=== PATIENT | male | born 1950 | race African-American/Black ===

== ENCOUNTER 2021-08-31 10:15 | Outpatient (CLI) | payer MEDICARE, MEDICAID | END 2021-08-31 10:16 | disposition home or self-care (01) | LOC: CSHCT 10:15 | PROVIDERS: ATTEND Orthopaedic Surgery | DX: M54.50 Low back pain, unspecified (principal); M47.816 Spondylosis without myelopathy or radiculopathy, lumbar region; Z98.890 Other specified postprocedural states | CPT/HCPCS: 72131; 80048; 85027; 85610; 85730; 86850; 86900; 86901; 93005; U0003; U0005 ==

== ENCOUNTER 2021-08-31 11:06 | Outpatient (CLI) | payer MEDICARE, MEDICAID ==
[2021-08-31 12:54] LABS: Hemoglobin 10.7 g/dL (13.5-17.5); Mean Corpuscular HGB CONC 30.2 g/dL (32.0-36.0); Mean Corpuscular Volume 89.4 fl (81.2-95.1); Mean Platelet Volume 10.1 fl (7.4-10.4); Platelet Count 353 10x3/uL (150-450); Red Blood Cell (RBC) Count 3.96 10x6/uL (4.32-5.72); White Blood Cell (WBC) Count 9.6 10x3/uL (3.5-10.5)
[2021-08-31 13:50] LABS: INR-International Normal Ratio 1.1; PTT 29.5 sec (22.0-33.0); Prothrombin Time 12.2 sec (9.5-12.1)
[2021-08-31 13:53] LABS: Anion Gap 16 mmol/L (10-20); BUN (Urea Nitrogen) 9 mg/dL (8.4-25.7); Calc. Creatinine Clearance 0 mL/min (70-130); Calcium 8.8 mg/dL (7.8-10.44); Carbon Dioxide 30 mmol/L (23-31); Chloride 103 mmol/L (98-107); Glucose 112 mg/dL (83-110); Potassium 3.6 mmol/L (3.5-5.1); Sodium 145 mmol/L (136-145)
[2021-08-31 17:08] LABS: SARS-CoV-2 PCR by NAA Not Detected (NotDetected)
== END 2021-08-31 11:07 | disposition home or self-care (01) ==
LOC: CSHLAB 11:06
PROVIDERS: ATTEND Orthopaedic Surgery
DX: Z01.818 Encounter for other preprocedural examination (principal); Z20.822 Contact with and (suspected) exposure to COVID-19; M54.50 Low back pain, unspecified; M54.17 Radiculopathy, lumbosacral region
CPT/HCPCS: 80048; 85027; 85610; 85730; 86850; 86900; 86901; 93005; 93010; U0003; U0005

== ENCOUNTER 2021-09-05 06:00 | Inpatient (IN) | payer MEDICARE, MEDICAID ==
[2021-08-31 12:54] LABS: Hemoglobin 10.7 g/dL (13.5-17.5); Mean Corpuscular HGB CONC 30.2 g/dL (32.0-36.0); Mean Corpuscular Volume 89.4 fl (81.2-95.1); Mean Platelet Volume 10.1 fl (7.4-10.4); Platelet Count 353 10x3/uL (150-450); Red Blood Cell (RBC) Count 3.96 10x6/uL (4.32-5.72); White Blood Cell (WBC) Count 9.6 10x3/uL (3.5-10.5)
[2021-08-31 13:50] LABS: INR-International Normal Ratio 1.1; PTT 29.5 sec (22.0-33.0); Prothrombin Time 12.2 sec (9.5-12.1)
[2021-08-31 13:53] LABS: Anion Gap 16 mmol/L (10-20); BUN (Urea Nitrogen) 9 mg/dL (8.4-25.7); Calc. Creatinine Clearance 0 mL/min (70-130); Calcium 8.8 mg/dL (7.8-10.44); Carbon Dioxide 30 mmol/L (23-31); Chloride 103 mmol/L (98-107); Glucose 112 mg/dL (83-110); Potassium 3.6 mmol/L (3.5-5.1); Sodium 145 mmol/L (136-145)
[2021-08-31 17:08] LABS: SARS-CoV-2 PCR by NAA Not Detected (NotDetected)
[2021-09-05] MEDS ORDERED: EPINEPHrine 1 MG/ML AMP ONE (06:12)
[2021-09-05] MEDS ORDERED: Bupivacaine 0.25% HCL 30 ML VIAL ONE (06:12)
[2021-09-05] MEDS ORDERED: Dexamethasone 4 mg/ml Vial ONE (06:40)
[2021-09-05] MEDS ORDERED: Lidocaine 1% PF 5 ML VIAL ONE (06:40)
[2021-09-05] MEDS ORDERED: PROPOFOL 20 ML ONE (06:40)
[2021-09-05] MEDS ORDERED: Fentanyl 100 MCG/2 ML VIAL ONE ×3 (06:40→17:04)
[2021-09-05] MEDS ORDERED: Ondansetron PF 4 MG/2 ML Vial ONE (06:40)
[2021-09-05] MEDS ORDERED: Midazolam HCl 2 mg/2 ml Vial ONE (06:40)
[2021-09-05] MEDS ORDERED: PHENYLEPHRINE-NS 100 MCG/ML 10 ML SYRINGE ONE (06:41)
[2021-09-05] MEDS ORDERED: Ketamine 50 MG/ML (10ML VIAL) ONE (06:44)
[2021-09-05] MEDS ORDERED: SUGAMMADEX SODIUM 200 MG/2 ML VIAL ONE (06:44)
[2021-09-05] MEDS ORDERED: Phenylephrine 40 MG/NS 250 ML 250 ML ONE (06:45)
[2021-09-05] MEDS ORDERED: Propofol 1,000 MG/100 ML VIAL IV ONE ×2 (06:45→12:32)
[2021-09-05] MEDS ORDERED: Famotidine/PF 20 mg/2ml Vial ONE (06:48)
[2021-09-05] MEDS ORDERED: Rocuronium Bromide 10 MG/ML (10ML VIAL) ONE (07:00)
[2021-09-05] MEDS ORDERED: CEFAZOLIN 1 GM VIAL ONE ×2 (07:02→11:02)
[2021-09-05] MEDS ORDERED: Albumin 5% 500 ML ONE (07:08)
[2021-09-05] MEDS ORDERED: Tranexamic Acid 1,000 MG/10 ML VIAL ONE (08:36)
[2021-09-05 09:21] LABS: Actual Bicarbonate (HCO3a) 27.3 mEq/L (22-28); Base Excess (BEa) 3.6 mEq/L (-2.0 to +3.0); CO2 Tension 37.9 mmHg (35.0-45.0); Calcium, Ionized (arterial) 1.06 mmol/L (1.12-1.30); Carboxyhemoglobin (COHb) 0.1 gm% (0.0-3.0); O2 Tension (PaO2), arterial 194.2 mmHg (> 70.0); Potassium - ABG Lab 2.7 mmol/L (3.70-5.30); Puncture Site Other Site; pH, Arterial 7.48 (7.35-7.45)
[2021-09-05 09:24] LABS: ALV-art Gradient 471.425 mmHg (0-20)
[2021-09-05 11:49] LABS: Actual Bicarbonate (HCO3a) 26.7 mEq/L (22-28); Base Excess (BEa) 3.7 mEq/L (-2.0 to +3.0); CO2 Tension 34.1 mmHg (35.0-45.0); Calcium, Ionized (arterial) 1.03 mmol/L (1.12-1.30); Carboxyhemoglobin (COHb) 0.5 gm% (0.0-3.0); Critical Notified Whom: CRNA; Hemoglobin (Hb) 9.6 g/dL (14.0-18.0); O2 Tension (PaO2), arterial 182.7 mmHg (> 70.0); Potassium - ABG Lab 2.8 mmol/L (3.70-5.30); Puncture Site Other Site; RapidComm Collect By CBN; pH, Arterial 7.51 (7.35-7.45)
[2021-09-05 11:53] LABS: ALV-art Gradient 487.675 mmHg (0-20)
[2021-09-05] MEDS ORDERED: HYDROmorphone 0.5 MG/0.5 ML SYRINGE ONE (12:32)
[2021-09-05] MEDS ORDERED: traMADol HCl 50 MG TAB PO PRN (13:59)
[2021-09-05] MEDS ORDERED: Acetaminophen 325 MG TAB PO PRN ×2 (13:59→14:02)
[2021-09-05] MEDS ORDERED: TETANUS AND DIPHTHERIA TOX/PF 0.5 ML DISP.SYRIN IM SCH (14:00)
[2021-09-05] MEDS ORDERED: Meperidine HCl/PF 25 MG/ML VIAL ONE (14:00)
[2021-09-05] MEDS ORDERED: Communication Order-Pharmacy FS SCH (14:00)
[2021-09-05] MEDS ORDERED: INSULN SC PRN (14:02)
[2021-09-05] MEDS ORDERED: [UNRECOGNIZED DRUG - OTHER] SC PRN (14:02)
[2021-09-05] MEDS ORDERED: INSULIN ASPART 100 UNIT/ML SC PRN (14:02)
[2021-09-05] MEDS ORDERED: HumaLOG 300 UNITS/3 ML VIAL SC PRN (18:13)
[2021-09-05] MEDS ORDERED: hydrALAZINE 20 MG/ML VIAL SLOW IVP PRN (19:06)
[2021-09-05] MEDS ORDERED: Dextrose 50% Abboject 50 ML SYRINGE IVP PRN (19:30)
[2021-09-05] MEDS ORDERED: Dextrose 5% in Water 1,000 ML IV PRN (19:30)
[2021-09-05 19:47] LABS: #Monocytes 0.7 10x3/uL (0.0-1.1); #Neutrophils 10.9 10x3/uL (1.5-8.4); %Basophils 0.1 % (0.0-2.0); %Lymphocytes 14.1 % (18.0-47.0); %Monocytes 5.1 % (0.0-10.0); %Neutrophils 80.3 % (40.0-75.0); Hemoglobin 9.9 g/dL (13.5-17.5); Mean Corpuscular HGB CONC 31.4 g/dL (32.0-36.0); Mean Corpuscular Hemoglobin 27.4 pg (27.0-33.0); Mean Corpuscular Volume 87.3 fl (81.2-95.1); Mean Platelet Volume 9.2 fl (7.4-10.4); Platelet Count 282 10x3/uL (150-450); RBC Distribution Width 14.6 % (11.5-14.5); Red Blood Cell (RBC) Count 3.61 10x6/uL (4.32-5.72); White Blood Cell (WBC) Count 13.6 10x3/uL (3.5-10.5)
[2021-09-05] MEDS: Carvedilol 25 MG TAB PO SCH (19:50)
[2021-09-05] MEDS: Dronedarone HCl 400 MG TAB PO SCH (19:51)
[2021-09-05 19:59] LABS: INR-International Normal Ratio 1.1; PTT 26.7 sec (22.0-33.0); Prothrombin Time 11.8 sec (9.5-12.1)
[2021-09-05 20:02] LABS: ALT (SGPT) 10 U/L (8-55); AST (SGOT) 20 U/L (5-34); Albumin 3.8 g/dL (3.4-4.8); Alkaline Phosphatase 80 U/L (40-110); Anion Gap 13 mmol/L (10-20); BUN (Urea Nitrogen) 12 mg/dL (8.4-25.7); Bilirubin, Total 0.7 mg/dL (0.2-1.2); Calc. Creatinine Clearance 64 mL/min (70-130); Calcium 8.5 mg/dL (7.8-10.44); Carbon Dioxide 28 mmol/L (23-31); Chloride 103 mmol/L (98-107); Glucose 163 mg/dL (83-110); Potassium 3.4 mmol/L (3.5-5.1); Protein, Total 6.8 g/dL (5.8-8.1); Sodium 141 mmol/L (136-145)
[2021-09-05] MEDS: Aspirin 81 mg Enteric Coated Tablet PO SCH (20:14)
[2021-09-05] MEDS: traZODone HCl 50 MG TAB PO SCH (20:22)
[2021-09-05] MEDS: Atorvastatin Calcium 40 MG TAB PO SCH (20:22)
[2021-09-05] MEDS: CEFAZOLIN 2 GM in Premix Bag 1 BAG IVPB SCH (20:23)
[2021-09-05] MEDS: Morphine 4 MG/ML VIAL SLOW IVP PRN (20:50)
[2021-09-06] MEDS: HYDROcodone/Acetaminophen 10/325 mg Tablet PO PRN ×7 (00:02→23:47)
[2021-09-06] MEDS: CEFAZOLIN 2 GM in Premix Bag 1 BAG IVPB SCH ×3 (03:47→18:34)
[2021-09-06 04:32] LABS: Hemoglobin 8.9 g/dL (13.5-17.5); Mean Corpuscular HGB CONC 31.9 g/dL (32.0-36.0); Mean Corpuscular Hemoglobin 27.6 pg (27.0-33.0); Mean Corpuscular Volume 86.6 fl (81.2-95.1); Platelet Count 273 10x3/uL (150-450); RBC Distribution Width 14.6 % (11.5-14.5); Red Blood Cell (RBC) Count 3.22 10x6/uL (4.32-5.72)
[2021-09-06 04:37] LABS: Anion Gap 15 mmol/L (10-20); BUN (Urea Nitrogen) 12 mg/dL (8.4-25.7); Calc. Creatinine Clearance 75 mL/min (70-130); Calcium 8.2 mg/dL (7.8-10.44); Carbon Dioxide 27 mmol/L (23-31); Chloride 105 mmol/L (98-107); Glucose 140 mg/dL (83-110); Potassium 3.2 mmol/L (3.5-5.1); Sodium 144 mmol/L (136-145)
[2021-09-06 04:44] VITALS: BMI 28.4
[2021-09-06] MEDS: Lantus 1000 UNITS/10 ML VIAL SC SCH (08:51)
[2021-09-06] MEDS: Carvedilol 25 MG TAB PO SCH ×2 (08:52→16:08)
[2021-09-06] MEDS: Torsemide 20 MG TAB PO SCH (08:52)
[2021-09-06] MEDS: Lisinopril 20 MG TAB PO SCH (08:52)
[2021-09-06] MEDS: Spironolactone 25 MG TAB PO SCH (08:53)
[2021-09-06] MEDS: Tamsulosin HCl 0.4 MG CAP PO SCH (08:53)
[2021-09-06] MEDS: Amlodipine 5 MG TAB PO SCH (08:53)
[2021-09-06] MEDS: Multivit, Therapeutic 1 TAB PO SCH (08:54)
[2021-09-06] MEDS: Aspirin 81 mg Enteric Coated Tablet PO SCH ×2 (08:54→21:20)
[2021-09-06] MEDS: Dronedarone HCl 400 MG TAB PO SCH ×2 (08:55→16:08)
[2021-09-06] MEDS ORDERED: Aspirin 81 mg Enteric Coated Tablet PO SCH (09:00)
[2021-09-06] MEDS ORDERED: LIRAGLUTIDE 0.6 MG/0.1 ML SC SCH (09:00)
[2021-09-06] MEDS ORDERED: Electrolyte Replacement Protocol 1 EACH FS PRN (10:30)
[2021-09-06] MEDS ORDERED: Potassium Chloride 20 MEQ TAB PO SCH ×2 (11:00→15:15)
[2021-09-06] MEDS: Morphine 4 MG/ML VIAL SLOW IVP PRN ×2 (11:09→16:08)
[2021-09-06 14:52] LABS: Potassium 3.5 mmol/L (3.5-5.1)
[2021-09-06] MEDS: Atorvastatin Calcium 40 MG TAB PO SCH (21:20)
[2021-09-07] MEDS: traZODone HCl 50 MG TAB PO SCH (02:04)
[2021-09-07] MEDS: CEFAZOLIN 2 GM in Premix Bag 1 BAG IVPB SCH ×2 (03:00→11:04)
[2021-09-07 05:15] LABS: Magnesium 1.8 mg/dL (1.6-2.6)
[2021-09-07] MEDS ORDERED: Magnesium 2 GM/50 ML 2 GM in Premix Bag 1 BAG IVPB SCH (08:00)
[2021-09-07] MEDS ORDERED: Potassium Chloride 20 MEQ TAB PO SCH (08:00)
[2021-09-07] MEDS: Dronedarone HCl 400 MG TAB PO SCH ×2 (08:34→16:11)
[2021-09-07] MEDS: Amlodipine 5 MG TAB PO SCH (08:35)
[2021-09-07] MEDS: Carvedilol 25 MG TAB PO SCH ×2 (08:36→16:13)
[2021-09-07] MEDS: Aspirin 81 mg Enteric Coated Tablet PO SCH (08:36)
[2021-09-07] MEDS: Multivit, Therapeutic 1 TAB PO SCH (08:36)
[2021-09-07] MEDS: Spironolactone 25 MG TAB PO SCH (08:37)
[2021-09-07] MEDS: Lisinopril 20 MG TAB PO SCH (08:38)
[2021-09-07] MEDS: Lantus 1000 UNITS/10 ML VIAL SC SCH (08:39)
[2021-09-07] MEDS: Tamsulosin HCl 0.4 MG CAP PO SCH (08:39)
[2021-09-07] MEDS: HYDROcodone/Acetaminophen 10/325 mg Tablet PO PRN ×2 (09:08→16:10)
[2021-09-07] MEDS: Torsemide 20 MG TAB PO SCH (09:09)
[2021-09-07 12:34] LABS: Potassium 3.3 mmol/L (3.5-5.1)
[2021-09-07 17:16] VITALS: BP 95/52; TEMP 97.5
[2021-09-07] MEDS ORDERED: Docusate 100 MG CAP PO SCH (21:00)
== END 2021-09-07 18:45 | disposition home or self-care (01) | DRG 454 ==
LOC: CSHSDC 06:00 → CSHICU 18:44 → CSHTELE 09-06 12:05
PROVIDERS: ADMIT Internal Medicine; ATTEND Internal Medicine
PROC: 0SG30AJ Fusion of Lumbosacral Joint with Interbody Fusion Device, Posterior Approach, Anterior Column, Open Approach (ICD-10-PCS; principal; 2021-09-05)
PROC: 0SB40ZZ Excision of Lumbosacral Disc, Open Approach (ICD-10-PCS; 2021-09-05)
PROC: 4A11X4G Monitoring of Peripheral Nervous Electrical Activity, Intraoperative, External Approach (ICD-10-PCS; 2021-09-05)
PROC: 0SG30K1 Fusion of Lumbosacral Joint with Nonautologous Tissue Substitute, Posterior Approach, Posterior Column, Open Approach (ICD-10-PCS; 2021-09-05)
DX: M48.07 Spinal stenosis, lumbosacral region (principal); I50.42 Chronic combined systolic (congestive) and diastolic (congestive) heart failure; I13.0 Hypertensive heart and chronic kidney disease with heart failure and stage 1 through stage 4 chronic kidney disease, or unspecified chronic kidney disease; R53.83 Other fatigue; J44.9 Chronic obstructive pulmonary disease, unspecified; I48.91 Unspecified atrial fibrillation; I25.10 Atherosclerotic heart disease of native coronary artery without angina pectoris; E78.5 Hyperlipidemia, unspecified; N40.0 Benign prostatic hyperplasia without lower urinary tract symptoms; E11.22 Type 2 diabetes mellitus with diabetic chronic kidney disease; M54.17 Radiculopathy, lumbosacral region; M54.12 Radiculopathy, cervical region; N18.31 Chronic kidney disease, stage 3a; K21.9 Gastro-esophageal reflux disease without esophagitis; E11.65 Type 2 diabetes mellitus with hyperglycemia; G47.33 Obstructive sleep apnea (adult) (pediatric); Z20.822 Contact with and (suspected) exposure to COVID-19; Z95.810 Presence of automatic (implantable) cardiac defibrillator
CPT/HCPCS: 36415; 36416; 72110; 76000; 80048; 80053; 82805; 83735; 84100; 84132; 85025; 85027; 85610; 85730; 86850; 86900; 86901; 94760; C1713; C1762; J0171; J0690; J1100; J1170; J1815; J2175; J2250; J2270; J2405; J2704; J3010; J3475; P9045; S0020; S0028; U0003; U0005

== ENCOUNTER 2021-10-10 10:45 | Outpatient (CLI) | payer MEDICARE, MEDICAID | END 2021-10-10 10:46 | disposition home or self-care (01) | LOC: CSHRAD 10:45 | PROVIDERS: ATTEND Orthopaedic Surgery | DX: M54.50 Low back pain, unspecified (principal); Z98.890 Other specified postprocedural states | CPT/HCPCS: 72100 ==

== ENCOUNTER 2023-01-07 17:11 | Emergency (ER) | payer OTHER ==
[2023-01-07] MEDS ORDERED: Aspirin 325 MG TAB ONE (18:19)
[2023-01-07] MEDS ORDERED: Nitroglycerin 2% Ointment 1 INCH/1 GM Packet ONE (18:19)
[2023-01-07] MEDS ORDERED: Morphine 2 MG/ML VIAL ONE (18:28)
[2023-01-07 18:40] LABS: #Eosinphils 0.2 10x3/uL (0.0-0.5); #Monocytes 0.8 10x3/uL (0.0-1.1); #Neutrophils 6.1 10x3/uL (1.5-8.4); %Basophils 0.4 % (0.0-2.0); %Eosinophils 2.2 % (0.0-6.0); %Lymphocytes 25.5 % (18.0-47.0); %Monocytes 8.6 % (0.0-10.0); %Neutrophils 62.8 % (40.0-75.0); Hemoglobin 9.9 g/dL (13.5-17.5); Mean Corpuscular HGB CONC 32.1 g/dL (32.0-36.0); Mean Corpuscular Hemoglobin 28.7 pg (27.0-33.0); Mean Corpuscular Volume 89.3 fl (81.2-95.1); Mean Platelet Volume 9.6 fl (7.4-10.4); Platelet Count 282 10x3/uL (150-450); RBC Distribution Width 13.9 % (11.5-14.5); Red Blood Cell (RBC) Count 3.45 10x6/uL (4.32-5.72); White Blood Cell (WBC) Count 9.7 10x3/uL (3.5-10.5)
[2023-01-07 18:56] LABS: ALT (SGPT) 11 U/L (8-55); AST (SGOT) 12 U/L (5-34); Alkaline Phosphatase 83 U/L (40-110); Anion Gap 15 mmol/L (10-20); BUN (Urea Nitrogen) 30 mg/dL (8.4-25.7); Bilirubin, Total 0.6 mg/dL (0.2-1.2); CK (CPK) 316 U/L (30-200); Calc. Creatinine Clearance 0 mL/min (70-130); Calcium 8.8 mg/dL (7.8-10.44); Carbon Dioxide 20 mmol/L (23-31); Chloride 110 mmol/L (98-107); Estimated GFR 32; Globulin 3.4 g/dL (2.4-3.5); Glucose 112 mg/dL (83-110); Lipase 31 U/L (8-78); Protein, Total 7.4 g/dL (5.8-8.1); Sodium 141 mmol/L (136-145)
[2023-01-07 19:32] LABS: SARS-CoV-2 NAA Rapid Test Not Detected (NotDetected)
== END 2023-01-07 21:31 | disposition short-term general hospital (02) ==
LOC: CSHERS 17:11
DX: I20.0 Unstable angina (principal); I12.9 Hypertensive chronic kidney disease with stage 1 through stage 4 chronic kidney disease, or unspecified chronic kidney disease; E11.22 Type 2 diabetes mellitus with diabetic chronic kidney disease; N18.9 Chronic kidney disease, unspecified; I48.91 Unspecified atrial fibrillation; E78.00 Pure hypercholesterolemia, unspecified; M10.9 Gout, unspecified; H54.7 Unspecified visual loss; Z20.822 Contact with and (suspected) exposure to COVID-19; Z87.891 Personal history of nicotine dependence
CPT/HCPCS: 71045; 80053; 82550; 83690; 83880; 84484; 85025; 93005; 96374; J2272; U0002

== ENCOUNTER 2023-05-20 12:21 | Emergency (ER) | payer MEDICARE, OTHER ==
[2023-05-20] MEDS ORDERED: Aspirin 325 MG TAB ONE (13:18)
[2023-05-20] MEDS ORDERED: Nitroglycerin 2% Ointment 1 INCH/1 GM Packet ONE (13:18)
[2023-05-20 13:44] LABS: ALT (SGPT) 11 U/L (8-55); AST (SGOT) 13 U/L (5-34); Albumin 3.6 g/dL (3.4-4.8); Alkaline Phosphatase 85 U/L (40-110); Anion Gap 19 mmol/L (10-20); BUN (Urea Nitrogen) 23 mg/dL (8.4-25.7); Bilirubin, Total 0.6 mg/dL (0.2-1.2); CK (CPK) 151 U/L (30-200); Calc. Creatinine Clearance 0 mL/min (70-130); Calcium 8.4 mg/dL (7.8-10.44); Carbon Dioxide 17 mmol/L (23-31); Chloride 107 mmol/L (98-107); Estimated GFR 37; Globulin 3.3 g/dL (2.4-3.5); Glucose 329 mg/dL (83-110); Lipase 25 U/L (8-78); Potassium 3.5 mmol/L (3.5-5.1); Protein, Total 6.9 g/dL (5.8-8.1); Sodium 139 mmol/L (136-145)
[2023-05-20] MEDS ORDERED: Furosemide 40 MG/4 ML VIAL ONE (13:48)
[2023-05-20 14:00] LABS: #Basophils 0.1 10x3/uL (0.0-0.2); #Eosinphils 0.1 10x3/uL (0.0-0.5); #Monocytes 0.7 10x3/uL (0.0-1.1); #Neutrophils 6.5 10x3/uL (1.5-8.4); %Basophils 0.5 % (0.0-2.0); %Eosinophils 1.3 % (0.0-6.0); %Lymphocytes 24.1 % (18.0-47.0); %Monocytes 7.3 % (0.0-10.0); %Neutrophils 66.5 % (40.0-75.0); Hemoglobin 10.1 g/dL (13.5-17.5); Mean Corpuscular HGB CONC 32.4 g/dL (32.0-36.0); Mean Corpuscular Hemoglobin 27.7 pg (27.0-33.0); Mean Corpuscular Volume 85.7 fl (81.2-95.1); Platelet Count 300 10x3/uL (150-450); RBC Distribution Width 14.8 % (11.5-14.5); Red Blood Cell (RBC) Count 3.64 10x6/uL (4.32-5.72); White Blood Cell (WBC) Count 9.7 10x3/uL (3.5-10.5)
[2023-05-20] MEDS ORDERED: Acetaminophen 500 MG TAB ONE (14:10)
[2023-05-20 15:15] LABS: Bilirubin Neg (Negative); Blood, Urine 50 (Negative); Clarity Clear (Clear); Glucose, Urine (Dipstick) 250 mg/dL (Negative); Ketone, Urine Negative (Negative); Leukocyte Negative (Negative); Nitrite Negative (Negative); Protein, Urine (Dipstick) 30 mg/dl (Neg-Trace); Specific Gravity, Urine 1.015 (1.005-1.030); Urobilinogen Normal mg/dL (Less than 2)
[2023-05-20 15:30] LABS: Bacteria/HPF Rare-Few HPF (None Seen); CAUTI Indications for Culture Dysuria,urgency,freq; Squamous Epithelial 0-3 HPF (0-3); WBC/HPF 0-3 HPF (0-3)
[2023-05-20 15:32] LABS: Urine Culture Reflex No No
== END 2023-05-20 16:57 | disposition short-term general hospital (02) ==
LOC: CSHERS 12:21
DX: I13.0 Hypertensive heart and chronic kidney disease with heart failure and stage 1 through stage 4 chronic kidney disease, or unspecified chronic kidney disease (principal); I50.9 Heart failure, unspecified; N18.9 Chronic kidney disease, unspecified; R07.9 Chest pain, unspecified; R09.02 Hypoxemia; Z87.891 Personal history of nicotine dependence
CPT/HCPCS: 71045; 80053; 81001; 82550; 83690; 83880; 84484; 85025; 93005; J1940